=== PATIENT | female | born 1975 | race Asian ===

== ENCOUNTER 2019-06-30 17:10 | Emergency (ER) | payer OTHER ==
[~2019-06-30] VITALS: Ht 160 cm; Wt 96.0 kg
[2019-06-30 17:13] VITALS: BP 139/103
[2019-06-30] MEDS ORDERED: PENI250T2 PO (18:01)
[2019-06-30] MEDS ORDERED: NAPR-56 PO (18:01)
== END 2019-06-30 18:12 | disposition home or self-care (01) ==
LOC: ER 17:10
DX: K08.89 Other specified disorders of teeth and supporting structures (principal); Z79.899 Other long term (current) drug therapy
CPT/HCPCS: 99283

== ENCOUNTER 2019-10-03 18:26 | Emergency (ER) | payer OTHER ==
[~2019-10-03] VITALS: Ht 160 cm; Wt 94.0 kg
[2019-10-03 18:36] VITALS: BP 155/98
== END 2019-10-03 20:00 | disposition home or self-care (01) ==
LOC: ER 18:26
DX: Z77.21 Contact with and (suspected) exposure to potentially hazardous body fluids (principal); Z87.891 Personal history of nicotine dependence; Z88.1 Allergy status to other antibiotic agents
CPT/HCPCS: 99281

== ENCOUNTER 2024-12-23 15:07 | Emergency (ER) | payer BC, OTHER ==
[~2024-12-23] VITALS: Ht 160 cm; Wt 100.0 kg
[2024-12-23 15:19] VITALS: TEMP 97.4
--- NOTE | 2024-12-23 16:04 | RADIOLOGY REPORT ---
EXAM: DI ANKLE, COMPLETE(3VW MIN) HISTORY: ANKLE PAIN COMPARISON: None TECHNIQUE: Three views of the left ankle were performed. FINDINGS: No acute fracture or dislocation are identified about the left ankle. The mortise is intact . Plantar calcaneal bone spur, accessory navicular bone, and Achilles insertion enthesophyte are inci dentally noted. 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 IMPRESSION: 1. No acute fracture of the left ankle. 2. Nonacute findings as detailed above.
--- NOTE | 2024-12-23 16:42 | Physician Documentation ---
History of Present Illness ~ Chief Complaint: Ankle pain Stated Complaint: L ANKLE PAIN Time Seen by MD: 17:06 HPI This 49-year-old female presents with left foot and ankle pain, patient reports pain is worse in her posterior foot and ankle and across the top of her foot, tiffanie hurst reports the pain began in July and has been worsening. Medication Reconciliation Allergies: Coded Allergies: erythromycin base (Verified Allergy, Unknown, 12/23/24) Review of Systems ROS Left ankle pain as stated above in the HPI, otherwise all systems are reviewed and negative. Physical Exam Vital Signs: Temperature: 97.4, Heart Rate: 66, Respiratory Rate: 16, BP: 160/113, Pulse Oximetry: 95, Weight: 100.000 Physical Exam VITALS: Reviewed and as above. GENERAL: Alert, nontoxic appearing, no apparent distress. RESPIRATORY: No increased work of breathing, no respiratory distress, speaking in full clear sentences MUSCULOSKELETAL: No ecchymosis, no swelling, no erythema, no point tenderness. Brisk capillary refill, pedal pulse intact. Progress Results/Orders Results/Orders Completed Orders - ALIS LYNCH GASTROENTEROLOGY MANAGER Ketorolac Trometh 15mg/Ml Vial (Toradol (12/23/24 17:15) Vital Signs 12/23/24 12/23/24 12/23/24 15:19 17:24 17:45 Temp 97.4 Pulse 66 84 Resp 16 18 18 B/P (MAP) 160/113 130/103 Pulse Ox 95 98 EKG/XRAY/CT/US/VASC/MRI Bone/Soft Tissue X-Ray (Ext.) : Additional Comment EXAM: DI ANKLE, COMPLETE(3VW MIN) HISTORY: ANKLE PAIN COMPARISON: None TECHNIQUE: Three views of the left ankle were performed. FINDINGS: No acute fracture or dislocation are identified about the left ankle. The mortise is intact. Plantar calcaneal bone spur, accessory navicular bone, and Achilles insertion enthesophyte are incidentally noted. 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 IMPRESSION: 1. No acute fracture of the left ankle. 2. Nonacute findings as detailed above. Electronically Signed by:FLAKITO BOOTHE MD Date & Time: 12/23/24 1601 Dictated by: FLAKITO BOOTHE MD Dictation date and time: 12/23/24 1601 I have reviewed and agree with the radiology report. I have reviewed and interpreted the imaging as: No fracture or dislocation Medical Decision Making Findings This 49-year-old female presented with approximately six months of progressively worsening pain to her left foot and ankle, physical exam did not demonstrate evidence of swelling, point tenderness, ecchymosis, or erythema and x-ray did not demonstrate evidence of fracture or dislocation, however there were several chronic appearing changes on the x-ray that may explain patient's chronic foot pain, patient will require outpatient follow up with a powerhouse helper or orthopedist for further evaluation of chronic foot pain. Remainder of physical exam was benign in the foot is neurovascularly intact. Patient medicated for pain and provided home care instructions and return to care precautions which she verbalized understanding of. Foot Diff Dx:Considerations: Include: Arthritis, Cellulitis, Contusion, Dislocation, Fracture-metatarsal, Fracture-phalynx, Fracture-tarsal, Gout, Hematoma, Ingrown toenail, Laceration, Neurovascular injury, Rheumatoid, Sprain, Septic, Ulcer Departure Time of Disposition: 17:28 Disposition: 01 HOME / SELF CARE / HOMELESS Impression: Primary Impression: Foot pain, left Condition: Improved Discharge Instructions: Foot Pain Additional Instructions: There were several nonacute findings on your x-ray that will require evaluation management by a powerhouse helper or orthopedist. Rest your foot as much as you can, follow up as soon as you can with a powerhouse helper. May use ibuprofen or naproxen and Tylenol as needed for pain as directed by [id number] packaging. Do not use ibuprofen or naproxen for the next 12 hours as you received a Toradol shot which replaces these two medications. Please follow up with your primary care provider in the next few days. Please return to the emergency department for any new or worsening concerning symptoms. Referrals: NO PRIMARY CARE PROVIDER (PCP) Education Educated: Patient Educated regarding: diagnosis, treatment, prognosis, need for follow up Signature Scribe Signature: No scribe Attestation: The note accurately reflects work and decisions made by me.SHOLA Jansen 12/24/24 02:23 ALIS LYNCH December 23, 2024 16:41
[2024-12-23] MEDS: ketorolac trometh 15mg/ml vial 15 MG/ML ML IM ONE (17:24)
[2024-12-23 17:45] VITALS: BP 130/103; PULSE 84; RESP 18; O2SAT 98
== END 2024-12-23 17:46 | disposition home or self-care (01) ==
LOC: ER 15:08
DX: M79.672 Pain in left foot (principal); M25.572 Pain in left ankle and joints of left foot; Z88.1 Allergy status to other antibiotic agents
CPT/HCPCS: 73610; 96372; 99284; J1885

== ENCOUNTER 2025-07-22 12:33 | Outpatient (CLI) | payer BC ==
--- NOTE | 2025-07-22 14:02 | VASCULAR REPORT ---
Bilateral lower extremity venous duplex Clinical History: swelling Comparison: none Technique: Duplex Doppler evaluation of the deep venous systems of both lower extremities from the common femoral veins to the popliteal veins including color Doppler and spectral/pulsed waveform analysis was performed. Findings: RIGHT SIDE: The common femoral vein demonstrates appropriate compressibility and waveform variability. There is compressibility/patency of the great saphenous vein at the proximal thigh. The femoral vein demonstrates appropriate compressibility and waveform variability. The deep femoral vein demonstrates appropriate compressibility and waveform variability. The popliteal vein demonstrates appropriate compressibility and waveform variability. There is normal compressibility at the tibioperoneal trunk. LEFT SIDE: The common femoral vein demonstrates appropriate compressibility and waveform variability. There is compressibility/patency of the great saphenous vein at the proximal thigh. The femoral vein demonstrates appropriate compressibility and waveform variability. The deep femoral vein demonstrates appropriate compressibility and waveform variability. The popliteal vein demonstrates appropriate compressibility and waveform variability. There is normal compressibility at the tibioperoneal trunk. Impression: No right or left femoropopliteal venous thrombosis.
--- NOTE | 2025-07-22 15:37 | RADIOLOGY REPORT ---
EXAM: MR MRI C SPINE CLINICAL HISTORY: CERVICALGIA COMPARISON: None Technique: MRI of the cervical spine was performed without contrast. Findings: Severe motion degraded study. Vertebral body height is preserved. Vertebral body alignment is within normal limits. Vertebral marrow signal is essentially normal. No spinal cord edema. C2-3: No significant spinal canal or foraminal stenosis. C3-4: Disc bulge with uncovertebral hypertrophy. Mild right foraminal stenosis.Mildspinal canal narrowing. C4-5: Disc bulge with uncovertebral hypertrophy. Moderate right and mild left foraminal stenosis. Mild spinal canal narrowing. C5-6: Disc bulge with uncovertebral hypertrophy. No significant spinal canal or foraminal stenosis. C6-7: Disc bulge with uncovertebral hypertrophy. No significant spinal canal or foraminal stenosis. C7-T1: No significant spinal canal or foraminal stenosis. The paraspinal tissues are unremarkable. IMPRESSION: Severe motion degraded limited study. Multilevel degenerative changes most pronounced at C3-4 and C4-5 as described.
== END 2025-07-22 23:59 | disposition home or self-care (01) ==
LOC: VAS 12:33
PROVIDERS: ATTEND Student in an Organized Health Care Education/Training Program
DX: M50.123 Cervical disc disorder at C6-C7 level with radiculopathy (principal); M48.02 Spinal stenosis, cervical region; M25.472 Effusion, left ankle
CPT/HCPCS: 72141; 93970

== ENCOUNTER 2025-08-10 11:29 | Outpatient (CLI) | payer BC ==
--- NOTE | 2025-08-10 13:40 | RADIOLOGY REPORT ---
CLINICAL INDICATION: EFFUSION, LEFT ANKLE COMPARISON: None TECHNIQUE: Multiplanar, multisequence MRI of the left ankle was performed without intravenous contrast. Contrast: None INTERPRETATION: Bones: No evidence of acute fracture. There is T1 hypointensity in the anterior process of the calcaneus, the talus, the lateral cuneiform with corresponding marrow edema. Alignment: There is abnormal narrowing of the space between the anterior process of the calcaneus and the navicular. Ligaments: The anterior talofibular ligament is torn. The posterior talofibular ligament is intact. The calcaneofibular ligament is intact. The inferior tibiofibular ligaments are intact. The visualized portions of the deltoid and spring ligaments are intact. Tendons:The Achilles tendon is intact. There is an enthesophyte along the posterior calcaneus. The peroneal tendons are intact. Trace fluid in the peroneal tendon sheaths. The posterior tibialis, flexor hallucis longus and flexor digitorum longus tendons are intact. The dorsal extensor tendons are in tact. Plantar Fascia: The medial cord of the plantar fascia is intact. Plantar calcaneal spur noted. Bursae: The retroachilles bursa is not fluid distended. The retrocalcaneal bursa is not fluid distended. Mass/Fluid: Ankle joint and subtalar joint effusions noted. No mass or fluid in the sinus tarsi. Muscles: There is edema within the intrinsic muscles of the foot and the subcutaneous tissues. IMPRESSION: 1. Findings suspicious for calcaneonavicular coalition. Bone marrow edema in the talus, calcaneus, and lateral cuneiform with T1 hypointensity which could represent stress reaction in the setting of the tarsal coalition. Alternatively, the findings could reflect an infectious or inflammatory etiology. Ankle joint effusion and subtalar joint effusions. Correlation with patient's symptoms and laboratory values recommended. Follow-up MRI may be obtained following presumptive therapy to ensure resolution of the symptoms. 2. ATFL tear. 3. Mild soft tissue swelling, nonspecific. 4. Achilles tendon enthesophyte and plantar calcaneal spur. hS:Y
== END 2025-08-10 23:59 | disposition home or self-care (01) ==
LOC: MRI02 11:29
PROVIDERS: ATTEND Student in an Organized Health Care Education/Training Program
DX: S93.492A Sprain of other ligament of left ankle, initial encounter (principal); M25.572 Pain in left ankle and joints of left foot; M77.32 Calcaneal spur, left foot; M79.89 Other specified soft tissue disorders; M76.62 Achilles tendinitis, left leg; X58.XXXA Exposure to other specified factors, initial encounter; Y93.89 Activity, other specified; Y92.89 Other specified places as the place of occurrence of the external cause; Y99.9 Unspecified external cause status
CPT/HCPCS: 73721

== ENCOUNTER 2025-08-11 15:47 | Outpatient (CLI) | payer BC | END 2025-08-11 23:59 | disposition home or self-care (01) | LOC: RAD 15:47 | PROVIDERS: ATTEND Student in an Organized Health Care Education/Training Program | DX: M25.472 Effusion, left ankle (principal) | CPT/HCPCS: 36415; 84155; 84165; 85651; 86038; 86060; 86140 ==